=== PATIENT | male | born 1950 | race Caucasian/White ===

== ENCOUNTER 2017-05-30 14:41 | Emergency (ER) | END 2017-05-30 16:00 | disposition left against medical advice (07) ==

== ENCOUNTER 2017-06-01 12:23 | Emergency (ER) | END 2017-06-01 16:47 | disposition home or self-care (01) ==

== ENCOUNTER 2018-08-08 11:17 | Emergency (ER) | payer MEDICARE, OTHER ==
[~2018-08-08] VITALS: Ht 172.7 cm; Wt 123.2 kg
[~2018-08-08 11:17] MED LIST: AMLO-145 PO; AMLO5TAB4 PO; CYCL10TA7 PO; HYDR-4011 PO; INSU100C SQ; INSU100V18 SC; LOSA100T3 PO; LOSA1TAB9 PO; NPH,100V10 SC; NPH,3INS5 SQ; TRAM50TA2 PO
[2018-08-08 11:55] VITALS: BP 151/82; PULSE 59; RESP 20; Ht 172.7 cm; Wt 123.2 kg
--- NOTE | 2018-08-08 13:03 | ERD ---
ER Documentation Chief Complaint Chief Complaint SOB SINCE YESTERDAY AT 1600, TRANSIENT EPISODE OF DROOLING YESTERDAY 1600 HPI 68-year-old male with a history of hypertension and diabetes presenting with complaints of dyspnea since yesterday, worse with exertion, improved with rest. No associated chest pain or dizziness. He also complains that he has some weakness in his face, unsure what side, with associated drooling yesterday at 1600 that has since improved. He denies any headache, vision disturbance, focal weakness or numbness. No fevers or chills. Primary care doctor is Dr. Friedman. Supervisor Wood Room is Dr. Riccardo CHUN All systems reviewed and are negative except as per history of present illness. Medications Home Meds Active Scripts Aspirin* (Aspirin* EC) 325 Mg Tab, 325 MG PO DAILY, #30 TAB Prov:DINO FAM MD 08/08/18 Hydrocodone/Acetaminophen ([place] 5-325 Tablet) 1 Each Tablet, 1 TAB PO Q6H PRN for PAIN, #7 TAB Prov:MARK WALLACE MD 06/01/17 Cyclobenzaprine Hcl* (Cyclobenzaprine Hcl*) 10 Mg Tablet, 10 MG PO TID, #15 TAB Prov:MARK WALLACE MD 06/01/17 Tramadol HCl (Tramadol HCl) 50 Mg Tablet, 50 MG PO Q4 PRN for PAIN, #20 TAB Prov:MARK WALLACE MD 06/01/17 Reported Medications Insulin Lispro (Humalog) 100 U/Ml Cartridge, 12 SQ AC DINNER 01/09/11 Insulin Lispro (Humalog) 100 U/Ml Cartridge, 15 SQ AC LUNCH 01/09/11 Insulin Lispro (Humalog) 100 U/Ml Cartridge, 10 SQ AC BREAKFAST 01/09/11 Nph, Human Insulin Isophane (Humulin N) 100 Units/Ml Pen, 20 SQ HS 01/09/11 Nph, Human Insulin Isophane (Humulin N) 100 Units/Ml Pen, 20 SQ AM 01/09/11 Losartan-Hydrochlorothiazide (Hyzaar) 1 Tab Tablet, 1 TAB PO DAILY, #1 01/09/11 Amlodipine Besylate* (Norvasc*) 5 Mg Tablet, 5 MG PO DAILY, #1 01/09/11 Nph, Human Insulin Isophane* (Novolin N*) 100 U/Ml Vial, 20 UNITS SC BID 01/09/11 Insulin Lispro (Humalog) 100 U/Ml Vial, SC TID 01/09/11 Amlodipine Besylate* (Amlodipine Besylate*) 5 Mg Tablet, 5 MG PO DAILY 01/09/11 Losartan Potassium* (Cozaar*) 100 Mg Tablet, 100 MG PO DAILY 01/09/11 Allergies Allergies: Coded Allergies: No Known Allergies (Verified Allergy, Mild, 08/04/13) PMhx/Soc History of Surgery: Yes (GALLBLADDER, VERTEBRAL SX) Anesthesia Reaction: No Hx Neurological Disorder: No Hx Respiratory Disorders: No Hx Cardiac Disorders: Yes (CHF, HTN, HIGH CHOLESTEROL) Hx Psychiatric Problems: No Hx Alcohol Use: No Hx Substance Use: No Hx Tobacco Use: Yes Smoking Status: Current every day smoker FmHx Family History: diabetes Physical Exam Vitals Vital Signs Date Temp Pulse Resp B/P (MAP) Pulse Ox O2 O2 Flow FiO2 Time Delivery Rate 08/08/18 98.6 59 20 151/82 97 11:55 (105) Physical Exam Const: No acute distress Head: Atraumatic Eyes: Normal Conjunctiva ENT: Normal External Ears, Nose and Mouth. Edentulous Neck: Full range of motion. No meningismus. Resp: Clear to auscultation bilaterally Cardio: Regular rate and rhythm, no murmurs. 2+ distal pulses in all 4 extremities Abd: Soft, non tender, non distended. Normal bowel sounds Skin: No petechiae or rashes Back: No midline or flank tenderness Ext: No cyanosis, or edema Neur: Awake and alert, mild right-sided facial droop, all other cranial nerves appear to be intact. No dysarthria. No evidence of Randolph's palsy. Strength and sensations intact in all 4 extremities. Psych: Normal Mood and Affect Result Diagram: 08/08/18 1248 08/08/18 1248 Results 24 hrs Laboratory Tests Test 08/08/18 12:48 White Blood Count 4.6 10^3/ul Red Blood Count 4.69 10^6/ul Hemoglobin 14.4 g/dl Hematocrit 43.0 % Mean Corpuscular Volume 91.7 fl Mean Corpuscular Hemoglobin 30.7 pg Mean Corpuscular Hemoglobin Concent 33.5 g/dl Red Cell Distribution Width 14.5 % Platelet Count 136 10^3/UL Mean Platelet Volume 10.6 fl Immature Granulocytes % 0.200 % Neutrophils % 61.3 % Lymphocytes % 22.7 % Monocytes % 12.0 % Eosinophils % 3.1 % Basophils % 0.7 % Nucleated Red Blood Cells % 0.0 /100WBC Immature Granulocytes # 0.010 10^3/ul Neutrophils # 2.8 10^3/ul Lymphocytes # 1.0 10^3/ul Monocytes # 0.6 10^3/ul Eosinophils # 0.1 10^3/ul Basophils # 0.0 10^3/ul Nucleated Red Blood Cells # 0.0 10^3/ul Sodium Level 143 mmol/L Potassium Level 3.5 mmol/L Chloride Level 106 mmol/L Carbon Dioxide Level 26 mmol/L Anion Gap 11 Blood Urea Nitrogen 16 mg/dl Creatinine 0.82 mg/dl Est Glomerular Filtrat Rate mL/min > 60 mL/min Glucose Level 188 mg/dl Calcium Level 9.5 mg/dl Troponin I < 0.012 ng/ml B-Type Natriuretic Peptide 96 PG/ML Current Medications Medications Dose Sig/[place] Start Time Status Last (Trade) Ordered Route PRN Stop Time Admin Dose Reason Admin Ondansetron 4 mg ER BRIDGE 08/08/18 HCl (Zofran PRN IV 14:30 Inj) NAUSEA/VOMITI 08/09/18 14:29 NG 650 mg ER BRIDGE 08/08/18 Acetaminophen PRN PO 14:30 (Tylenol .MILD PAIN 08/09/18 14:29 Tab) 1-3 OR TEMP Procedures/MDM EMERGENT LABS AND DIAGNOSTIC STUDIES: Lab Results above were reviewed and interpreted by me. CBC: no anemia or evidence of infection CMP: No evidence of electrolyte abnormality, renal failure, hypoglycemia, liver failure, or biliary obstruction Troponin within normal limits, not indicative of cardiac ischemia 12-lead EKG was interpreted by Storm Fam MD: sinus rhythm with first-degree AV block with occasional PVCs Normal axis Normal intervals No acute ST or T wave changes suggestive of acute ischemia or STEMI. Radiology Results as interpreted by Radiology below were reviewed by S. N. Ekmekjian, MD: Chest x-ray: No acute abnormalities CT head: IMPRESSION: 1. No acute intracranial hemorrhage, transcortical infarction or mass effect. Please note MRI is more sensitive for detection of acute ischemia and can be obtained as clinically warranted. 2. Mild intracranial atherosclerosis and chronic small vessel ischemic changes. 3. 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 4. Mild generalized cerebral and cerebellar volume loss. .Neelam Sampson MD, Date Time Electronically viewed and signed by .Neelam Sampson MD, on 08/08/2018 13:17 Initial Nursing notes reviewed. Previous Medical Records requested via the Electronic Health Record. EMERGENCY DEPARTMENT COURSE / MEDICAL DECISION MAKING: Patient is presenting with dyspnea on exertion. Troponin is within normal limits and EKG does not show arrhythmia or ischemia. However on the CT head, an old stroke was noted. Patient is denying any history of stroke. I spoke with his primary care doctor, Dr. Friedman, who states that he does not have a history of stroke. He would like to admit the patient for further stroke workup. This does not appear to be an acute stroke however. I discussed this with the patient, however he decided to leave AGAINST MEDICAL ADVICE. I explained to him this finding shows that he has some predisposing risk factors that are causing him to have strokes. He does need a stroke workup and appropriate management. However the patient has agreed to leave AGAINST MEDICAL ADVICE and states that he will follow-up with his primary care doctor. Cafeteria Director was used explained this to the patient. He states that he understands everything. He has decision-making capacity. He was encouraged to return for any worsening symptoms or if he changes his mind. Patient's blood pressure was elevated (>120/80) but appears stable without evidence of hypertensive emergency or urgency. The patient was counseled about the risks of hypertension and urged to pursue outpatient monitoring and therapy within a week with their primary care physician. Departure Diagnosis: Primary Impression: Dyspnea on exertion Additional Impression: Stroke CVA mechanism: unspecified Qualified Codes: I63.9 - Cerebral infarction, unspecified Condition: Fair DINO FAM MD Aug 08, 2018 13:03
[2018-08-08] MEDS ORDERED: ASPI325T32 PO (14:22)
[2018-08-08] MEDS ORDERED: ACETAMINOPHEN 325 MG TAB PO PRN (14:30)
[2018-08-08] MEDS ORDERED: ONDANSETRON 4 MG INJ IV PRN (14:30)
== END 2018-08-08 14:55 | disposition left against medical advice (07) ==
LOC: E/R 11:17 → CANBEDREQ 15:58
DX: I63.9 Cerebral infarction, unspecified (principal); R06.00 Dyspnea, unspecified; I11.0 Hypertensive heart disease with heart failure; I50.9 Heart failure, unspecified; E11.9 Type 2 diabetes mellitus without complications; F17.210 Nicotine dependence, cigarettes, uncomplicated; R29.810 Facial weakness; Z79.4 Long term (current) use of insulin
CPT/HCPCS: 36415; 70450; 71045; 80048; 83880; 84484; 85025; 93005